=== PATIENT | male | born 1950 | race American Indian/Alaskan Native ===

== ENCOUNTER 2018-06-05 07:00 | Outpatient (CLI) | payer MEDICARE, OTHER ==
[2018-06-05 07:56] LABS: Blood Urea Nitrogen 15 mg/dL (9-20)
--- NOTE | 2018-06-05 17:51 | Magnetic Resonance Report ---
FINAL REPORT EXAM: MR ABDOMEN WO/W CON HISTORY: RENAL MASS TECHNIQUE: MRI abdomen with and without intravenous contrast with renal protocol PRIORS: There are no prior studies submitted for comparison FINDINGS: In the mid right kidney there is a mass measuring 3.2 x 3.5 x 3.6 centimeters is a largely intrarenal there is component extending through the cortex. The the margins are well-defined. On precontrast T2 fat saturated sequences there is a intermediate to high signal intensity component. There is corresponding increased signal within this area on precontrast T1 weighted sequence indicating hemorrhagic or proteinaceous component. The dwyer appear nodular and complex and demonstrate minimal enhancement on postcontrast sequences. Mass does not extend into the renal pelvis. Left kidney demonstrates normal signal intensity. There is no evidence for hydronephrosis bilaterally. No additional abnormality is identified in the visualized portion of the abdomen IMPRESSION: Complex right renal mass. Bosniak category 3 indeterminate. Suspicious for neoplasm. CTR 2 protocol initiated at the time this dictation
== END 2018-06-05 07:01 | disposition home or self-care (01) ==
LOC: MRI 07:00
PROVIDERS: ATTEND Urology
DX: N28.89 Other specified disorders of kidney and ureter (principal)
CPT/HCPCS: 36415; 74183; 82565; 84520; A9577

== ENCOUNTER 2018-07-31 06:18 | Observation (INO) | payer MEDICARE, OTHER ==
[2018-07-31] MEDS ORDERED: NACL 0.9% 500 ML 500 ML IV SCH (07:00)
[2018-07-31 07:02] LABS: Basophils % (Auto) 0.8 % (0.0-1.8); Eosinophils # (Auto) 0.1 K/mm3 (0.0-0.4); Eosinophils % (Auto) 1.2 % (0.0-4.3); Hematocrit 43.9 % (35.5-45.6); Hemoglobin 14.6 gm/dl (11.8-15.2); Lymphocytes # (Auto) 2.8 K/mm3 (1.2-5.4); Lymphocytes % (Auto) 46.5 % (13.4-35.0); Mean Corpuscular HGB Conc 33 % (32-34); Mean Corpuscular Hemoglobin 31 pg (28-32); Mean Corpuscular Volume 94 fl (84-94); Monocytes # (Auto) 0.5 K/mm3 (0.0-0.8); Monocytes % (Auto) 8.9 % (0.0-7.3); Platelet Count 225 K/mm3 (140-440); Red Blood Count 4.68 M/mm3 (3.65-5.03); Red Cell Distribution Width 13.3 % (13.2-15.2)
[2018-07-31 07:12] LABS: INR 0.92 (0.87-1.13)
[2018-07-31 07:13] LABS: Partial Thromboplastin Time 32.2 Sec. (24.2-36.6)
[2018-07-31 07:22] LABS: BUN/Creatinine Ratio 21; Blood Urea Nitrogen 27 mg/dL (9-20); Calcium 8.8 mg/dL (8.4-10.2); Hemolysis Index 5
[2018-07-31] MEDS ORDERED: VERSED ONE (08:21)
[2018-07-31] MEDS ORDERED: HEPARIN/NS 5000 UNIT/500ML(CATH LAB) 1,000 ML IR ONE (08:21)
[2018-07-31] MEDS ORDERED: SUBLIMAZE ONE (08:22)
[2018-07-31] MEDS ORDERED: NITROGLYCERIN SYRINGE 3 ML ONE (08:22)
[2018-07-31] MEDS ORDERED: CALAN ONE (08:22)
[2018-07-31] MEDS ORDERED: XYLOCAINE 2% INFILTRATI ONE (08:31)
[2018-07-31] MEDS: HEPARIN 10,000 UNITS/10 ML ONE ×2 (08:55→09:05)
[2018-07-31] MEDS ORDERED: ASPIRIN ONE (09:09)
[2018-07-31] MEDS ORDERED: AGGRASTAT DRIP (12.5 MG/250 ML) 12,500 MCG/250 ML BAG IV ONE (09:34)
[2018-07-31] MEDS ORDERED: EFFIENT PO ONE (09:41)
--- NOTE | 2018-07-31 10:51 | Cardiac Catherization Report ---
CARDIAC CATHETERIZATION INDICATION FOR PROCEDURE: The patient is a very pleasant 68-year-old male who presents here with dyspnea on exertion, abnormal stress test and preoperative evaluation, significant apical ischemia noted on stress test. Risks, benefits, alternatives discussed at length prior to obtaining informed consent. 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 PROCEDURE IN DETAIL: The patient was brought to the laborer livestock in a postabsorptive state, prepped and draped in sterile fashion. Jonny's test in right hand was normal. A 2 mL of 2% lidocaine used to anesthetize the right wrist. A standard 6-Vietnamese hydrophilic sheath used to cannulate the right radial artery via modified Seldinger technique. All exchanges performed to exchange a J-tip guidewire. JL3.5 catheter used to engage the left main. No dampening or ventricularization. Cineangiography performed in all projections. JR4 catheter used to cross the aortic valve under fluoroscopic guidance. Left ventriculography performed in 30 GILMORE and 30 SERBIAN projections via hand injections, catheter flushed. Manual pullback performed with continuous pressure monitoring. Catheter used to engage the right coronary. No dampening or ventricularization. Cineangiography performed in all projections. Catheter removed from the body. DATA: Aortic pressure is 140/80, LV pressure is 140. LVEDP of 20 mmHg. Left ventriculography revealed normal systolic performance with estimated ejection fraction of 55% to 60%. No evidence of aortic stenosis. CORONARY ANATOMY: Strongly left dominant system. Right coronary is small nondominant. Left main without significant disease, bifurcates left anterior descending and left circumflex. Left circumflex is a moderate sized vessel, courses AV groove, gives off a left PDA. No significant disease. LAD is a moderate sized vessel, wraps around the entire apex, feeds most of the inferior wall. There is a long complex 90% stenosis in the mid LAD. There is also a 90% to 95% stenosis in the periapical LAD. These are, I believe, culprit to his dyspnea on exertion, also correlate with abnormal stress test given strong left dominance. At this point, given symptoms, abnormal stress test and cath findings, we decided to proceed with PCI. Further heparin was given. Abnormal ACT is confirmed. The patient was loaded with aspirin and Effient. EBU 3.5 guide used to engage the left main without difficulty. A Prowater was used to cross the lesions without difficulty. We predilated the distal periapical LAD lesion without difficulty with a 2.5 x 12 balloon. I made the decision to deploy bare-metal stents throughout the LAD. Given his history of kidney mass and upcoming nephrectomy, did not want to delay the surgery with drug-eluting stents. We then placed an Integrity 2.5 x 14 in the distal periapical LAD, expanded at 12 jerry for 30 seconds. Excellent result. Next, we predilated the entirety of the long mid LAD lesion with a 2.5 x 12 balloon. Next, we used a 2.75 x 26 bare-metal stent in the distal segment of the mid LAD, deployed at 12 jerry for 30 seconds. Next, we used a second 2.75 x 26 stent overlapping with the previous one deployed at 12 jerry for 30 seconds. The overlap was then postdilated for 15 seconds at 13 jerry. Excellent angiographic result. Next, intravascular ultrasound of the entire LAD and left main were performed. All 3 stents are well apposed and expanded. No dissection, moderate diffuse concentric disease in the mid segment. There is a 25% stenosis in the proximal segment of the distal LAD, but no obstructive disease identified. Final angiogram reveals LLYOD 3 flow, great result. No complications. No dissection or perforation. CONCLUSIONS: 1. Severe multifocal single vessel disease with a long complex 90% mid LAD stenosis and 90% periapical LAD stenosis. These lesions correlate with the stress test. Successful IVUS guided PCI with placement of bare-metal stents with excellent angiographic and electrographic results. 2. No obstructive disease in the right coronary, left main or left circumflex. 3. Normal left ventricular systolic performance, estimated ejection fraction of 55% to 60%. 4. No evidence of aortic stenosis. At this point, standard radial care. Aspirin, statin, single bolus of Aggrastat was given. Aggressive primary and secondary prevention measures. I placed bare-metal stents, so as to not cause too much delay for upcoming nephrectomy for questionable renal mass. He is clinically stable, chest pain free. Admit to Step Down Unit. Will watch him overnight. Results of procedure explained in length with the patient and family. All questions and concerns were addressed. ADDENDUM I directly supervised the administration of moderate sedation with fentanyl and Versed from 8:51-9:31 a.m. JOB# [id number] LAURA/TRESA
[2018-07-31] MEDS ORDERED: ZYLOPRIM PO PRN (15:59)
[2018-07-31] MEDS ORDERED: TYLENOL PO PRN (16:00)
[2018-07-31] MEDS ORDERED: ZOFRAN IV PRN (16:01)
[2018-07-31] MEDS ORDERED: FLOMAX PO SCH (22:00)
[2018-08-01 05:39] LABS: Basophils % (Auto) 0.5 % (0.0-1.8); Eosinophils # (Auto) 0.1 K/mm3 (0.0-0.4); Eosinophils % (Auto) 0.9 % (0.0-4.3); Hematocrit 44.1 % (35.5-45.6); Hemoglobin 14.9 gm/dl (11.8-15.2); Lymphocytes # (Auto) 3.2 K/mm3 (1.2-5.4); Lymphocytes % (Auto) 47.1 % (13.4-35.0); Mean Corpuscular HGB Conc 34 % (32-34); Mean Corpuscular Hemoglobin 31 pg (28-32); Mean Corpuscular Volume 93 fl (84-94); Monocytes # (Auto) 0.7 K/mm3 (0.0-0.8); Monocytes % (Auto) 10.2 % (0.0-7.3); Platelet Count 234 K/mm3 (140-440); Red Blood Count 4.73 M/mm3 (3.65-5.03); Red Cell Distribution Width 13.2 % (13.2-15.2)
[2018-08-01 06:00] LABS: Creatine Kinase MB < 1.0 ng/mL (0.0-4.0)
[2018-08-01 06:04] LABS: BUN/Creatinine Ratio 15; Blood Urea Nitrogen 17 mg/dL (9-20); Calcium 8.9 mg/dL (8.4-10.2); Hemolysis Index 15
--- NOTE | 2018-08-01 07:44 | XRay Report ---
AP CHEST: HISTORY: Post PCI AP view of the chest demonstrates a normal mediastinal and cardiac contour with clear lungs and normal bony and soft tissue structures. IMPRESSION: Unremarkable AP chest.
--- NOTE | 2018-08-01 09:11 | Short Stay Summary ---
Short Stay Documentation Date of service: 08/01/18 - History H&P: obtained from office - Allergies and Medications Current Medications: Allergies No Known Allergies Allergy (Verified 07/18/18 16:28) Home Medications Medication Instructions Recorded Confirmed Last Taken Type Allopurinol [Zyloprim] 300 mg PO QDAY PRN 07/18/18 07/31/18 1 Week Ago History ~07/24/18 Aspirin [Aspir-Low] 81 mg PO DAILY 07/18/18 07/31/18 07/21/18 History Atorvastatin [Lipitor Tab] 20 mg PO QHS 07/18/18 07/31/18 07/30/18 History Brimonidine Tartrate/Timolol 2 drop OP DAILY 07/18/18 07/31/18 07/30/18 History [Combigan 0.2%-0.5% Eye Drops] Tamsulosin HCl [Flomax] 0.4 mg PO QHS 07/18/18 07/31/18 07/30/18 History hydroCHLOROthiazide [Hctz] 12.5 mg PO QDAY 07/18/18 07/31/18 07/30/18 History Active Medications Acetaminophen (Tylenol) 650 mg PO Q6H PRN PRN Reason: Pain, Mild (1-3) Allopurinol (Zyloprim) 300 mg PO QDAY PRN PRN Reason: Pain, Mild (1-3) Aspirin (Baby Aspirin) 81 mg PO QDAY [facility] Atorvastatin Calcium (Lipitor) 20 mg PO QHS [facility] Last Admin: 07/31/18 21:24 Dose: 20 mg Brimonidine/Timolol (Combigan 0.2-0.5%) 2 drops OD DAILY [facility] Hydrochlorothiazide (Hctz) 12.5 mg PO QDAY [facility] Ondansetron HCl (Zofran) 4 mg IV Q8H PRN PRN Reason: Nausea And Vomiting Prasugrel (Effient) 10 mg PO QDAY [facility] Tamsulosin HCl (Flomax) 0.4 mg PO QHS [facility] Last Admin: 07/31/18 21:24 Dose: 0.4 mg - Physical exam General appearance: no acute distress Integumentary: no rash, no growths, no abnormal pigmentation HEENT: Atraumatic, PERRLA Lungs: Clear to auscultation Heart: Regular rate, Normal S1, Normal S2 Gastrointestinal: normal, normoactive bowel sounds Extremities: no ischemia, pulses intact, pulses symmetrical, No edema Neurological: Normal gait, Normal speech, Strength at 5/5 X4 ext - Brief post op/procedure progress note Date of procedure: 07/31/18 Pre-op diagnosis: abnormal stress test Post-op diagnosis: other (CAD) Procedure: LHC with PCI - see dictated cath report Anesthesia: local Estimated blood loss: none Condition: stable - Hospital course Hospital course: The pt is a 68 YO male who presented for scheduled elective coronary angiogram after he was found to have an abnormal stress test. He underwent LHC with successful PCI of LAD and was admitted for overnight observation. He remained clinically and hemodynamically stable throughout the procedure and recovery and is medically stable for discharge home. He is to follow up in our [place] office with Dr. Ana Bateman on 08/25/2018 @ 3:00PM. - Disposition Condition at discharge: Good Disposition: [id number] TO HOME OR SELFCARE - Discharge Diagnoses (1) CAD (coronary artery disease) Status: Chronic (2) Stented coronary artery Status: Chronic (3) HTN (hypertension) Status: Chronic (4) Hyperlipidemia Status: Chronic Short Stay Discharge Plan Activity: advance as tolerated Diet: low fat, low cholesterol, low salt Wound: open to air, keep clean and dry, per your surgeon's advice Follow up with: ALEXIA TOVAR MD [Primary Care Provider] - 7 Days MARCO BATEMAN MD [Staff Physician] - 7 Days (Follow up in our [place] office with Dr. Ana Bateman on 08/25/2018 @ 3:00PM. ) Prescriptions: Prasugrel [Effient] 10 mg PO QDAY #30 tablet
[2018-08-01] MEDS ORDERED: HCTZ PO SCH (10:00)
[2018-08-01] MEDS ORDERED: EFFIENT PO SCH (10:00)
[2018-08-01] MEDS ORDERED: BABY ASPIRIN PO SCH (10:00)
[2018-08-01] MEDS ORDERED: COMBIGAN 0.2-0.5% OD SCH (10:00)
[2018-08-01 11:41] VITALS: BP 125/75
== END 2018-08-01 12:30 | disposition home or self-care (01) ==
LOC: CATHLABREC 06:18 → 4A 12:15
PROVIDERS: ADMIT Internal Medicine; ATTEND Internal Medicine
DX: I25.10 Atherosclerotic heart disease of native coronary artery without angina pectoris (principal); I10 Essential (primary) hypertension; E78.5 Hyperlipidemia, unspecified
CPT/HCPCS: 36415; 71045; 80048; 82550; 82553; 84484; 85025; 85347; 85610; 85730; 92928; 92978; 93005; 93010; 93458; A9270; C1725; C1753; C1769; C1876; C1887; C1894; G0378; J1644; J2250; J3010; J3246; J7040; Q9967